=== PATIENT | female | born 1980 | race Asian ===

== ENCOUNTER → 2017-05-29 | Outpatient (CLI) | payer OTHER ==
[~2017-05-29] MED LIST: SACC1CAP3 PO; VITACAP7 PO
== END ==
LOC: CPRE 11:30
PROVIDERS: ATTEND Obstetrics & Gynecology
DX: Z01.812 Encounter for preprocedural laboratory examination (principal); D25.9 Leiomyoma of uterus, unspecified

== ENCOUNTER → 2017-06-06 | Day surgery (SDC) | payer OTHER ==
[~2017-06-06] VITALS: Ht 165.1 cm; Wt 58.3 kg
[~2017-06-06] MED LIST changes: +*ONDANSETRON 4 MG VIAL PERIprocedural Use ONLY ONE; +ACETAMINOPHEN 1000 MG/100 ML 100 ML IV ONE; +APREPITANT 40 MG CAP PO ONE; +ARTIFICIAL TEARS OPTH OINT 3.5 APPLIC/3.5 GM TUBO ONE; +BUPIVACAINE HCL PF 0.25% 30 ML VIAL ONE; +CHLORHEXIDINE GLUCONATE 2 % 1 PACK (2 CLOTHS) TOPICAL PRN; +DEXAMETHASONE SOD PHOS 4 MG/ML VIAL IV ONE; +DO NOT ADM ANY ANTICOAGULANT DRUGS PRN; +DOCUSATE SODIUM 100 MG CAP PO SCH; +GLYCOPYRROLATE 1 MG/5 ML SYRINGE IV PUSH ONE; +HYDROmorphone HCL PF 1 MG/ML VIAL IVP PRN; +IBUPROFEN 600 MG TAB PO PRN; +KETOROLAC TROMETHAMINE 30 MG/ML (IVP) VIAL IV PUSH ONE; +KETOROLAC TROMETHAMINE 30 MG/ML (IVP) VIAL IVP PRN; +LACTATED RINGER'S 1000 ML INJ 1,000 ML IV SCH; +LACTATED RINGER'S 1000 ML IV PRN; +LIDOCAINE HCL 1% PF 5 ML AMPULE OTHER ONE; +LORazepam 0.5 MG TAB PO PRN; +METOPROLOL TARTRATE 25 MG TAB PO PRN; +MISOPROSTOL 200 MCG TAB PO ONE; +MORPHINE SULFATE 4 MG/ML INJ IV ONE; +NEOSTIGMINE 5 MG/5 ML SYRINGE IV PUSH ONE; +ONDANSETRON HCL 4 MG/2 ML VIAL IV PUSH ONE; +ONDANSETRON HCL 4 MG/2 ML VIAL IVP PRN; +PILL SPLITTER OTHER PRN; +POVIDONE IODINE 5% (ANTISEPSIS KIT) 4 APPLICATIONS EACH NARE PRN; +PROMETHAZINE INJ 25 MG/ML VIAL IM PRN; +PROPOFOL 200 MG/20 ML AMP IV ONE; +ROCURONIUM INJ 50 MG/5 ML SYRINGE IV PUSH ONE; +SODIUM CHLORID 0.9% 500 ML IV PRN; +SODIUM CHLORIDE 0.9% FLUSH 10 ML FLUSH IV FLUSH PRN; +SODIUM CHLORIDE 0.9% FLUSH 10 ML FLUSH IV FLUSH SCH; +STERILE WATER FOR INJECTION 20 ML VIAL IV ONE; +VASOPRESSIN 20 UNITS/ML VIAL (IVTITR) ONE; +VECURONIUM BROMIDE 20 MG VIAL IV ONE; +ceFAZolin 2 GM PREMIX 50 ML IV ONE; +diphenhydrAMINE HCL 25 MG CAP PO PRN; +ePHEDrine/NS 25 MG/5 ML SYR IV ONE; +oxyCODONE/ACETAMINOPHEN 5 MG/325 MG TAB PO PRN
[2017-06-06 17:35] VITALS: BP 95/48; PULSE 54; RESP 18; TEMP 97.9; O2SAT 100
--- NOTE | 2017-06-07 10:16 | MP ---
cc: JAMIR DELGADO DATE OF SURGERY 06/06/2017 PREOPERATIVE DIAGNOSIS Patient with chronic pelvic pain, dysmenorrhea, dyspareunia solitary uterine fibroid. PROCEDURE Operative laparoscopy with ablation and resection of peritoneal implants due to endometriosis and simple myomectomy. POSTOPERATIVE DIAGNOSIS Patient with chronic pelvic pain, dysmenorrhea, dyspareunia solitary uterine fibroid. SURGEON Jamir Delgado MD ANESTHESIA General with endotracheal the intubation ESTIMATED BLOOD LOSS 50 cc DRAINS Alcantar to gravity OPERATIVE FINDINGS The patient had a solitary uterine myoma of approximately 3 cm consistent with the preoperative MRI imaging. The patient also had a level of endometriosis that was stage II. She had a large peritoneal implant was scarring underneath the left uterosacral ligament. She had multiple implants on both ovarian fossa and above the uterosacral ligaments bilaterally and she had a small endometrioma over the reflection of the infundibulopelvic ligament and the sidewall. There were some small implants over the peritoneal reflection of the bladder. The majority of the implants were less than 1 cm. Both ovaries appeared normal in size and shape. There was no surface lesion. There was no evidence of endometrioma. Both fallopian tubes were normal size and shape and caliber. PROCEDURE The patient received Ancef x2 grams as a prophylactic antibiotic. She underwent general anesthesia with endotracheal intubation. She was carefully placed in the dorsolithotomy position with Miles stirrups on the lower extremities. She had sequential's placed for VTE prophylaxis. She was prepped and draped and then a time-out was conducted and agreed and confirmed by all present in the room. The procedure preceded by placing a Alcantar catheter by sterile technique and then placing a small V-Care device into the cervix after was dilated appropriately for manipulation during the procedure. There is no significant findings on the bimanual exam on the pelvic exam. Attention was directed to the abdomen with no evidence of scar, deformity or herniation was noted. The umbilicus was injected with quarter percent plain Marcaine. Making a small stab wound to allow placement of a 5-mm visible port trocar, this was placed under direct vision without complication. Immediate insufflation of the pneumoperitoneum was conducted and the patient was placed in Trendelenburg positioning. Identification of the findings was assisted by placing two lateral ports on the right and the left flank, identifying the peritoneal implants and the preoperative identification of the solitary uterine fibroid which was predominately on the left anterior wall of the uterus. The [place] patient cart was then side docked with a #2 arm on the left and the #1 arm on the right. Monopolar scissors #2 and a bipolar grasper in the #1 arm. Good visualization was noted. The dissection initiated by ablating the endometrial implants that were visible starting from the left and progressively working towards the contralateral side. The endometrial implants were opened and ablated using monopolar energy. These implants were irrigated selectively after opening and dissecting the peritoneum. The rigid thermit welding machine operator aspirator was inserted through the #2 arm, removing the scissors intermittently to allow the supply chain assistant to use the thermit welding machine operator and aspirate the free fluid. This process continued to all throughout the dissection of the peritoneum. The large peritoneal window under the left uterosacral ligament was dissected to its margins allowing retrieval of the implant that was deep underneath the uterosacral ligament and this was sent in formalin for formal pathology. No active bleeding was incurred during any of these resections or ablations. All the implants were effectively ablated. There were no deep implants on the right sidewall, the predominant level of involvement was the left uterosacral ligament and the left infundibular pelvic ligament. Once this was complete, the attention was directed to the myoma where dilute Pitressin was injected a concentration of 1:60 approximately 7 cc was used to allow blanching of the serosal surface of the myoma. The myoma surface was then opened using the monopolar scissors in a linear fashion just to the left in the midline over the bulging surface of the myoma. The dissection carried through the myometrial tissue to the pseudocapsule of the fibroid. The fibroid was elevated with a single-tooth tenaculum and simple dissection by combination of sharp scissors with the monopolar energy was accomplished to resect the fibroid. The fibroid was removed intact. The deep defect in the myoma and the myometrium was then closed with a #1 Stratafix suture. Unipolar suture was used closing from the base securely and then in a layered fashion, the defect was closed, reapproximated the serosal surface at the end. With excellent result, there is no active bleeding or hematoma incurred during this closure. Again, the pelvis was irrigated by the supply chain assistant. All free blood and clot was removed. No active bleeding was noted. At this point, the [place] patient cart was undocked. Straight laparoscopy was utilized. The suture needle was then trimmed flush with the peritoneum removing the needle completely through the 10 mm umbilical port. The suture needle was placed previous to the placement of the [place] patient cart for future use during the myomectomy. Again, all needles were retrieved. Full count was correct. Again, copious irrigation of the pelvis was accomplished aspirating all free fluid. Observation off pressure revealed no active bleeding again from any dissection point or the myomectomy incision. Interceed was then introduced and placed over the left uterosacral ligament and sidewall to prevent adhesions and a piece of Interceed was placed over the anterior uterine surface over the myomectomy scar. After the completion of the case, the 10 mm trocar site was closed with an interrupted suture 0 Vicryl closing the fascia with an interrupted suture using a UR6 needle. The trocars were then removed after decompression of the pneumoperitoneum closing the incision sites with a subcuticular stitch of 4-0 Monocryl with Steri-Strips and Band-Aids placed. The V-Care device was removed gently from the cervix with minimal bleeding noted from the cervix, but no laceration. The Alcantar catheter was also removed with normal clear urine in the collection bag. At the completion of case, the patient stable. She was taken to recovery room on room air. The final count was correct. MD JASMINE Brennan/ANNETTE /6:13 PM /10:06 AM
== END | disposition home or self-care (01) ==
LOC: HSDC 07:28 → EDUNIT# 10:30
PROVIDERS: ATTEND Obstetrics & Gynecology
DX: D25.9 Leiomyoma of uterus, unspecified (principal); N94.10 Unspecified dyspareunia; N94.6 Dysmenorrhea, unspecified; N80.3 Endometriosis of pelvic peritoneum; G89.29 Other chronic pain; R10.2 Pelvic and perineal pain
CPT/HCPCS: 00840; 58545; 58662; 86850; 86900; 86901; 88305; C1765; J0131; J0690; J1100; J1170; J1885; J2270; J2405; J2550; J2710; J3010; J7120; J8501; 88307